=== PATIENT | female | born 1995 | race Caucasian/White ===

== ENCOUNTER 2016-09-28 14:25 | Outpatient (CLI) | payer OTHER ==
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
== END 2016-09-28 14:30 ==
LOC: RAD 14:25
PROVIDERS: ATTEND Family Medicine
DX: M25.511 Pain in right shoulder (principal)
CPT/HCPCS: 73030

== ENCOUNTER 2018-10-05 14:39 | Outpatient (CLI) | payer OTHER ==
[2018-10-05] MEDS ORDERED: 0.9 % SODIUM CHLORIDE 1,000 ML IV ONE (14:41)
== END 2018-10-05 16:10 | disposition home or self-care (01) ==
LOC: INF 14:39
PROVIDERS: ATTEND Family Medicine
DX: E86.0 Dehydration (principal)
CPT/HCPCS: 96360; J7030